=== PATIENT | female | born 1960 | race Hispanic/Latino ===

== ENCOUNTER → 2022-05-01 | Outpatient (CLI) | payer OTHER | END | disposition home or self-care (01) | LOC: RAH 13:46 | PROVIDERS: ATTEND Physical Medicine & Rehabilitation | DX: M47.812 Spondylosis without myelopathy or radiculopathy, cervical region (principal); M48.02 Spinal stenosis, cervical region; Z88.6 Allergy status to analgesic agent | CPT/HCPCS: 72141 ==

== ENCOUNTER → 2025-01-30 | Outpatient (CLI) | payer OTHER ==
--- NOTE | 2025-01-30 10:28 | HMCIMG ---
DEXA BONE DENSITY SURVEY HISTORY: Osteoporosis COMPARISON: None FINDINGS: Bone densitometry study was performed. Bone mineral density of the lumbar spine is 0.578 gram per centimeter square which corresponds to a T score of -4.3 and a Z score of -2.4. Bone mineral density of the left forearm is 0.398 grams per centimeter square which corresponds to a T score of -3.4 and a Z score of -1.7. IMPRESSION: 1. Osteoporosis of the lumbar spine and left forearm.
== END | disposition home or self-care (01) ==
LOC: RAH 07:38
PROVIDERS: ATTEND Family Medicine
DX: M81.0 Age-related osteoporosis without current pathological fracture (principal)
CPT/HCPCS: 77080

== ENCOUNTER → 2025-06-19 | Outpatient (CLI) | payer OTHER ==
--- NOTE | 2025-06-19 14:04 | HMCIMG ---
EXAM: ABDOMINAL ULTRASOUND Technique: Real-time grayscale ultrasound of the abdomen with color Doppler when indicated. Clinical Information: Thrombocytopenia. Findings: Liver: Length 14.3 cm with increased echogenicity compatible with hepatic steatosis; contour smooth; no focal hepatic lesion identified. Gallbladder and biliary tree: Gallbladder normal with wall thickness 2 mm; no gallstones or sludge; common bile duct measures 4 mm. Pancreas: Visualized portions are normal. Right kidney: 9.2 ??? 3.7 ??? 4.8 cm with normal cortical echogenicity and corticomedullary differentiation; no hydronephrosis or calculus. Left kidney: 10.3 ??? 5.3 ??? 4.6 cm with normal cortical echogenicity and corticomedullary differentiation; no hydronephrosis or calculus. Spleen: 9.8 ??? 2.4 ??? 3.3 cm; normal size and echotexture; no focal lesion. Aorta and inferior vena cava: Normal caliber. Impression: * Increased hepatic echogenicity consistent with hepatic steatosis. * No splenomegaly; otherwise unremarkable abdominal ultrasound. /[place]
== END | disposition home or self-care (01) ==
LOC: RAH 08:17
PROVIDERS: ATTEND Internal Medicine Medical Oncology
DX: D69.6 Thrombocytopenia, unspecified (principal)
CPT/HCPCS: 76700